=== PATIENT | male | born 1975 | race Caucasian/White ===

== ENCOUNTER 2022-01-10 00:21 | Inpatient (IN) | payer OTHER ==
[~2022-01-10] VITALS: Ht 180.3 cm; Wt 138.3 kg
[2022-01-10] MEDS ORDERED: IBUPROFEN 400MG TABLET PO ONE (02:45)
[2022-01-10 03:22] LABS: BASOPHILS % 0.4 % (0.0-2.0); EOSINOPHILS % 1.7 % (0.0-5.0); HEMATOCRIT. 36.2 % (42.0-52.0); HEMOGLOBIN. 11.7 g/dL (14.0-18.0); LYMPHOCYTES % 35.1 % (20.0-50.0); MEAN CORPUSCULAR HEMOGLOBIN 29.3 pg (28.0-32.0); MEAN CORPUSCULAR VOLUME 90.6 fL (80.0-94.0); MEAN PLATELET VOLUME 8.9 fl (7.4-10.4); MONOCYTES % 7.9 % (2.0-8.0); NEUTROPHILS % 54.9 % (40.0-76.0); PLATELET 142 x1000/uL (130-400); RED BLOOD CELL COUNT 3.99 mill/uL (4.7-6.1); RED CELL DISTRIBUTION WIDTH 15.3 % (11.6-14.6)
[2022-01-10 03:28] LABS: CHLORIDE 113 mEq/L (98-107)
[2022-01-10] MEDS ORDERED: CEPH500C2 MT (04:08)
[2022-01-10] MEDS ORDERED: ONDANSETRON HCL 4MG/2ML INJ IV PRN (10:15)
[2022-01-10] MEDS ORDERED: ACETAMINOPHEN 325MG TABLET PO PRN (10:15)
[2022-01-10] MEDS ORDERED: CEFTRIAXONE 1 G PREMIX 50 ML IV SCH (10:15)
[2022-01-10] MEDS ORDERED: ENOXAPARIN 150MG/ML SYR SUBCUT SCH (11:30)
[2022-01-10] MEDS ORDERED: VANCOMYCIN 1,750 MG in DEXT 5% WATER 500 ML IV SCH (12:30)
[2022-01-10] MEDS: CEFTRIAXONE 1,000 MG in DEXTROSE 5% WATER 50 ML IV SCH (13:07)
[2022-01-10 15:13] LABS: PROTHROMBIN TIME 10.8 sec (9.6-11.0)
[2022-01-10 15:47] LABS: *AMPHETAMINES SCREEN URINE PRESUMTIVE POSITIVE (NEGATIVE); *BARBITURATES SCREEN URINE NEGATIVE (NEGATIVE); *BENZODIAZEPINES SCREEN URINE NEGATIVE (NEGATIVE); *COCAINE SCREEN URINE NEGATIVE (NEGATIVE); CANNABINOID URINE SCREEN PRESUMTIVE POSITIVE (NEGATIVE); METHADONE URINE SCREEN NEGATIVE (NEGATIVE); OPIATES URINE SCREEN NEGATIVE (NEGATIVE); PHENCYCLIDINE URINE SCREEN NEGATIVE (NEGATIVE)
[2022-01-10] MEDS ORDERED: IOHEXOL-350 100 ML BOTTLE ONE (16:20)
[2022-01-10 20:00] VITALS: BP 139/74
[2022-01-10] MEDS: ENOXAPARIN 150MG/ML SYR SUBCUT SCH (20:32)
[2022-01-10 21:14] VITALS: BP 122/77
[2022-01-10] MEDS ORDERED: GABA-529 PO (21:38)
[2022-01-10] MEDS: VANCOMYCIN 1250MG in DEXTROSE 5% WATER 250ML IV SCH (23:11)
[2022-01-11] VITALS: BP 137/69
[2022-01-11 04:07] VITALS: BP 130/68
[2022-01-11] MEDS ORDERED: *PATIENT'S OWN MEDICATION STORAGE XX SCH (07:00)
[2022-01-11 08:00] VITALS: BP 137/69
[2022-01-11] MEDS ORDERED: APIX5TAB MT (08:20)
[2022-01-11] MEDS: ENOXAPARIN 150MG/ML SYR SUBCUT SCH (08:42)
[2022-01-11] MEDS: VANCOMYCIN 1250MG in DEXTROSE 5% WATER 250ML IV SCH (10:54)
[2022-01-11 12:00] VITALS: BP 132/68
[2022-01-11] MEDS: CEFTRIAXONE 1,000 MG in DEXTROSE 5% WATER 50 ML IV SCH (13:09)
[2022-01-11 15:05] VITALS: BP 130/60
== END 2022-01-11 16:00 | disposition home or self-care (01) | DRG 197 ==
LOC: ER 00:21 → 6EST 05:31 → ENRESERV 08:24
PROVIDERS: ADMIT Internal Medicine; ATTEND Internal Medicine
DX: I82.433 Acute embolism and thrombosis of popliteal vein, bilateral (principal); I82.411 Acute embolism and thrombosis of right femoral vein; E87.8 Other disorders of electrolyte and fluid balance, not elsewhere classified; L03.115 Cellulitis of right lower limb; L03.116 Cellulitis of left lower limb; D64.9 Anemia, unspecified; I10 Essential (primary) hypertension; E66.9 Obesity, unspecified; Z68.42 Body mass index [BMI] 45.0-49.9, adult; Z86.711 Personal history of pulmonary embolism; Z86.718 Personal history of other venous thrombosis and embolism; Z71.3 Dietary counseling and surveillance
CPT/HCPCS: 36415; 71045; 71275; 73630; 80053; 80305; 83605; 83880; 85025; 93005; 93970; 99285; J0696; J1650; J3370; J7060; Q9967

== ENCOUNTER 2022-08-13 19:38 | Inpatient (IN) | payer MEDICAID, OTHER ==
[~2022-08-13] VITALS: Ht 180.3 cm; Wt 108.9 kg
[~2022-08-13 19:38] MED LIST: APIX5TAB MT; CEPH500C2 MT; GABA-529 PO
[2022-08-13] MEDS ORDERED: VANCOMYCIN 1G PREMIX 200 ML IV SCH (23:45)
[2022-08-13] MEDS ORDERED: CEFTRIAXONE 1GM PREMIX 50 ML IV ONE (23:45)
[2022-08-13] MEDS ORDERED: FUROSEMIDE 40MG/4ML VIAL IVP ONE (23:45)
[2022-08-13 23:58] LABS: BASOPHILS % 0.4 % (0.0-2.0); EOSINOPHILS % 0.8 % (0.0-5.0); HEMATOCRIT. 38.1 % (42.0-52.0); HEMOGLOBIN. 12.6 g/dL (14.0-18.0); LYMPHOCYTES % 28.9 % (20.0-50.0); MEAN CORPUSCULAR HEMOGLOBIN 29.2 pg (28.0-32.0); MEAN CORPUSCULAR VOLUME 88.3 fL (80.0-94.0); MEAN PLATELET VOLUME 7.3 fl (7.4-10.4); MONOCYTES % 5.3 % (2.0-8.0); NEUTROPHILS % 64.6 % (40.0-76.0); PLATELET 237 x1000/uL (130-400); RED BLOOD CELL COUNT 4.31 mill/uL (4.7-6.1); RED CELL DISTRIBUTION WIDTH 14.3 % (11.6-14.6)
[2022-08-14 00:03] LABS: CHLORIDE 110 mEq/L (98-107)
[2022-08-14 00:06] LABS: D-DIMER 1.56 mg/L FEU (<0.50); PROTHROMBIN TIME 10.5 sec (9.6-11.0)
[2022-08-14] MEDS ORDERED: ENOXAPARIN 120MG/0.8ML SYR SUBCUT NR (01:00)
[2022-08-14] MEDS ORDERED: HYDROCODONE/ACETAMINOPHEN 5/325MG TABLET PO ONE (01:15)
[2022-08-14] MEDS ORDERED: LORAZEPAM 0.5MG TABLET PO PRN (07:00)
[2022-08-14] MEDS ORDERED: DOCUSATE SODIUM 100MG CAPSULE PO PRN (07:00)
[2022-08-14] MEDS ORDERED: IPRATROPIUM/ALBUTEROL 0.5-3(2.5)MG/3ML NEB HHN PRN ×2 (07:00→15:15)
[2022-08-14] MEDS ORDERED: ONDANSETRON HCL 4MG/2ML INJ IV PRN (07:00)
[2022-08-14] MEDS ORDERED: HYDROCODONE/ACETAMINOPHEN 5/325MG TABLET PO PRN (07:00)
[2022-08-14] MEDS ORDERED: ACETAMINOPHEN 325MG TABLET PO PRN ×2 (07:00)
[2022-08-14] MEDS ORDERED: CLONIDINE 0.1MG TABLET PO PRN (07:00)
[2022-08-14] MEDS ORDERED: IPRATROPIUM BROMIDE (0.02%) 0.5MG/2.5ML NEB HHN PRN (07:15)
[2022-08-14] MEDS ORDERED: ALBUTEROL (0.083%) 2.5MG/3ML NEB HHN PRN (07:15)
[2022-08-14 08:00] VITALS: BP 151/86
[2022-08-14 09:00] VITALS: BP 151/86
[2022-08-14] MEDS ORDERED: NALOXONE HCL 0.4MG/ML VIAL IV PRN (09:15)
[2022-08-14] MEDS: PIPERACILLIN/TAZOBACTAM 3.375 G in DEXTROSE 5% WATER 50 ML IV SCH ×3 (09:36→21:45)
[2022-08-14 12:00] VITALS: BP 137/86
[2022-08-14] MEDS: ENOXAPARIN 120MG/0.8ML SYR SUBCUT SCH (12:06)
[2022-08-14] MEDS: VANCOMYCIN 1G PREMIX 200 ML IV SCH (12:07)
[2022-08-14 14:29] LABS: TOTAL IRON BINDING CAPACITY 478 ug/dL (250-450)
[2022-08-14 16:00] VITALS: BP 148/91
[2022-08-14 20:00] VITALS: BP 127/79
[2022-08-14 22:41] LABS: FOLIC ACID (FOLATE) SERUM 11.1 ng/mL (>5.38)
[2022-08-15] VITALS: BP 135/86
[2022-08-15] MEDS: VANCOMYCIN 1G PREMIX 200 ML IV SCH (02:12)
[2022-08-15] MEDS: ENOXAPARIN 120MG/0.8ML SYR SUBCUT SCH ×2 (02:14→12:35)
[2022-08-15] MEDS: PIPERACILLIN/TAZOBACTAM 3.375 G in DEXTROSE 5% WATER 50 ML IV SCH ×2 (06:19→14:08)
[2022-08-15 07:22] LABS: CHLORIDE 107 mEq/L (98-107)
[2022-08-15 08:00] VITALS: BP 130/85
[2022-08-15] MEDS ORDERED: LIDOCAINE HCL 4% (40MG/ML) SOLN 50ML TOP NR (11:00)
[2022-08-15 11:59] VITALS: BP 135/81
[2022-08-15] MEDS ORDERED: VANCOMYCIN 750MG PREMIX 150 ML IV SCH (12:00)
[2022-08-15 14:46] VITALS: BP 135/81
== END 2022-08-15 15:53 | disposition home or self-care (01) | DRG 364 ==
LOC: ER 19:53 → MICUSO 08-14 01:36 → 6EST 08-14 05:30
PROVIDERS: ADMIT Internal Medicine; ATTEND Internal Medicine
PROC: 0KBS0ZZ Excision of Right Lower Leg Muscle, Open Approach (ICD-10-PCS; principal; 2022-08-15)
DX: L03.115 Cellulitis of right lower limb (principal); I82.512 Chronic embolism and thrombosis of left femoral vein; I83.019 Varicose veins of right lower extremity with ulcer of unspecified site; L84 Corns and callosities; D64.9 Anemia, unspecified; I10 Essential (primary) hypertension; L97.319 Non-pressure chronic ulcer of right ankle with unspecified severity; I82.531 Chronic embolism and thrombosis of right popliteal vein; M20.10 Hallux valgus (acquired), unspecified foot; Z59.01 Sheltered homelessness; Z86.711 Personal history of pulmonary embolism
CPT/HCPCS: 36415; 73630; 80048; 80053; 80202; 82607; 82728; 82746; 83036; 83540; 83550; 83880; 85025; 85379; 93005; 93923; 93970; 97162; 99285; J0696; J1650; J1940; J2543; J3370; J7060